=== PATIENT | female | born 1995 | race Caucasian/White ===

== ENCOUNTER 2022-12-15 07:44 | Inpatient (IN) | payer BC ==
[2022-12-15 08:20] LABS: #Basophils 0.1 thou/uL (0.0-0.2); #Eosinphils 0.1 thou/uL (0.0-0.7); #Monocytes 0.8 thou/uL (0.11-0.59); #Neutrophils 11.9 thou/uL (1.40-6.50); %Basophils 0.4 % (0.0-1.0); %Eosinophils 0.3 % (0.0-10.0); %Lymphocytes 18.2 % (21.0-51.0); %Monocytes 4.8 % (0.0-10.0); %Neutrophils 75.8 % (42.0-75.0); Hemoglobin 13.2 g/dL (12.0-16.0); Mean Corpuscular HGB CONC 34.2 g/dL (32.0-36.0); Mean Corpuscular Hemoglobin 32.4 pg (27.0-31.0); Mean Corpuscular Volume 94.8 fl (78.0-98.0); Mean Platelet Volume 9.9 fL (7.4-10.4); Platelet Count 314 10x3/uL (130-400); RBC Distribution Width 11.4 % (11.5-14.5); Red Blood Cell (RBC) Count 4.07 mill/uL (4.20-5.40); White Blood Cell (WBC) Count 15.7 10x3/uL (4.8-10.8)
[2022-12-15] MEDS ORDERED: Morphine 4 MG/ML VIAL ONE (08:22)
[2022-12-15] MEDS ORDERED: Bupivacaine 0.25% 10 ML VIAL ONE (08:22)
[2022-12-15] MEDS ORDERED: TETANUS, DIPHTHERIA TOX,ADULT (TDVAX) 0.5 ML VIAL IM ONE (08:22)
[2022-12-15] MEDS ORDERED: Ondansetron PF 4 MG/2 ML Vial ONE ×3 (08:22→12:07)
[2022-12-15] MEDS ORDERED: Boostrix 0.5 ML (Tdap) VIAL (>/=7 yrs of age) ONE (08:23)
[2022-12-15 08:31] LABS: BHCG - Serum Negative (NEGATIVE); Pregs Control Background? CLEAR/WHITE (CLR/WHITE); Pregs Control Bar Appear? YES (CONTROL BAR)
[2022-12-15 08:43] LABS: Acetaminophen Less than 10 mcg/mL (10.0-30.0); Alcohol Less than 10.0 mg/dL (Less than 10); Lipase 51 U/L (8-78); Salicylate Less than 8.0 mg/dL (15.0-30.0)
[2022-12-15 08:47] LABS: ALT (SGPT) 24 U/L (8-55); AST (SGOT) 26 U/L (5-34); Albumin 3.8 g/dL (3.5-5.0); Alkaline Phosphatase 44 U/L (40-110); Anion Gap 15 mmol/L (10-20); BUN (Urea Nitrogen) 13 mg/dL (7.0-18.7); Bilirubin, Total 0.4 mg/dL (0.2-1.2); Calc. Creatinine Clearance 0 mL/min (70-130); Calcium 8.5 mg/dL (7.8-10.44); Carbon Dioxide 15 mmol/L (22-29); Chloride 110 mmol/L (98-107); Estimated GFR 108; Globulin 2.6 g/dL (2.4-3.5); Glucose 166 mg/dL (70-105); Potassium 4.2 mmol/L (3.5-5.1); Protein, Total 6.4 g/dL (6.0-8.3); Sodium 136 mmol/L (136-145)
[2022-12-15] MEDS ORDERED: Piperacillin/Tazobactam 3.375 GM VIAL ONE ×2 (09:28→16:12)
[2022-12-15] MEDS ORDERED: Morphine 2 MG/ML VIAL ONE (09:59)
[2022-12-15] MEDS ORDERED: Iopamidol-370 76% 500 ML MDV (1 ML CHARGE) ONE (10:27)
[2022-12-15] MEDS ORDERED: HYDROmorphone 0.5 MG/0.5 ML SYRINGE ONE ×2 (12:01→14:27)
[2022-12-15] MEDS ORDERED: fentaNYL PF 100 MCG/2 ML SYRINGE ONE (12:02)
[2022-12-15] MEDS ORDERED: Midazolam HCl 2 mg/2 ml Vial ONE (12:02)
[2022-12-15] MEDS ORDERED: Succinylcholine 200 MG/10 ml SYRINGE FS ONE (12:07)
[2022-12-15] MEDS ORDERED: Lidocaine 1% PF 5 ML VIAL ONE (12:07)
[2022-12-15] MEDS ORDERED: PHENYLEPHRINE-NS 100 MCG/ML 10 ML SYRINGE ONE (12:07)
[2022-12-15] MEDS ORDERED: Ketorolac Tromethamine 30 MG/ML VIAL ONE (12:07)
[2022-12-15] MEDS ORDERED: Rocuronium Bromide 10 MG/ML (10ML VIAL) ONE (12:07)
[2022-12-15] MEDS ORDERED: PROPOFOL 200 MG/20 ML VIAL ONE (12:07)
[2022-12-15] MEDS ORDERED: Dexamethasone 20 MG/5 ML VIAL ONE (12:07)
[2022-12-15] MEDS ORDERED: Albumin 5% 250 ML ONE (12:35)
[2022-12-15] MEDS ORDERED: Bacitracin Zinc Ointment 30 gm TUBE ONE (14:00)
[2022-12-15] MEDS ORDERED: HYDROmorphone 2 MG/ML VIAL SLOW IVP PRN (15:20)
[2022-12-15] MEDS ORDERED: Meperidine HCl/PF 25 MG/ML VIAL SLOW IVP PRN (15:20)
[2022-12-15] MEDS ORDERED: Promethazine HCl 25 MG/ML VIAL IM PRN ×2 (15:20→15:30)
[2022-12-15] MEDS ORDERED: Ondansetron PF 4 MG/2 ML Vial IVP PRN (15:30)
[2022-12-15] MEDS ORDERED: diphenhydrAMINE 25 MG CAP PO PRN (15:30)
[2022-12-15] MEDS ORDERED: diphenhydrAMINE 50 MG/ML VIAL IM/IV PRN (15:30)
[2022-12-15] MEDS ORDERED: Zolpidem Tartrate 5 MG TAB PO PRN (15:30)
[2022-12-15] MEDS ORDERED: Fentanyl CADD 100 ML IVPB SCH (15:30)
[2022-12-15] MEDS ORDERED: Naloxone HCl 0.4 mg/ml Vial IV PRN (15:30)
[2022-12-15] MEDS ORDERED: Sodium Chloride 0.9% 100 ML ONE (16:12)
[2022-12-15] MEDS: Piperacillin/Tazobactam 3.375 GM in Sodium Chloride 0.9% 100 ML IVPB SCH (16:16)
[2022-12-15] MEDS: Bacitracin 1 PK TOP SCH ×2 (17:46→21:06)
[2022-12-15] MEDS: Sodium Chloride 0.9% 1,000 ML IV SCH (17:47)
[2022-12-15] MEDS: Famotidine/PF 20 mg/2ml Vial SLOW IVP SCH (21:06)
[2022-12-16] MEDS: Piperacillin/Tazobactam 3.375 GM in Sodium Chloride 0.9% 100 ML IVPB SCH ×3 (00:56→16:48)
[2022-12-16] MEDS: Sodium Chloride 0.9% 1,000 ML IV SCH ×2 (00:56→08:35)
[2022-12-16 06:02] LABS: %Basophils 0.1 % (0.0-1.0); %Lymphocytes 8.1 % (21.0-51.0); %Monocytes 10.2 % (0.0-10.0); %Neutrophils 81.4 % (42.0-75.0); Mean Corpuscular HGB CONC 33.9 g/dL (32.0-36.0); Mean Corpuscular Hemoglobin 32.8 pg (27.0-31.0); Mean Corpuscular Volume 96.6 fl (78.0-98.0); Platelet Count 238 10x3/uL (130-400); RBC Distribution Width 11.9 % (11.5-14.5); White Blood Cell (WBC) Count 9.8 10x3/uL (4.8-10.8)
[2022-12-16 06:14] LABS: Anion Gap 14 mmol/L (10-20); BUN (Urea Nitrogen) 11 mg/dL (7.0-18.7); Calc. Creatinine Clearance 122 mL/min (70-130); Calcium 8.1 mg/dL (7.8-10.44); Carbon Dioxide 19 mmol/L (22-29); Chloride 112 mmol/L (98-107); Estimated GFR 103; Glucose 163 mg/dL (70-105); Magnesium 1.6 mg/dL (1.6-2.6); Phosphorus 3.1 mg/dL (2.3-4.7); Potassium 3.8 mmol/L (3.5-5.1); Sodium 141 mmol/L (136-145)
[2022-12-16 06:36] LABS: Hemoglobin 9.5 g/dL (12.0-16.0)
[2022-12-16] MEDS: Bacitracin 1 PK TOP SCH ×3 (08:34→20:20)
[2022-12-16] MEDS: Famotidine/PF 20 mg/2ml Vial SLOW IVP SCH ×2 (08:34→20:20)
[2022-12-16] MEDS ORDERED: Lactated Ringer's 1,000 ML IV SCH (10:45)
[2022-12-16] MEDS: Lactated Ringer's 1,000 ML IV SCH ×2 (16:23→20:21)
[2022-12-16 18:07] LABS: #Neutrophils 10.2 thou/uL (1.40-6.50); %Basophils 0.2 % (0.0-1.0); %Lymphocytes 8.5 % (21.0-51.0); %Monocytes 8.3 % (0.0-10.0); %Neutrophils 82.6 % (42.0-75.0); Hemoglobin 8.8 g/dL (12.0-16.0); Mean Corpuscular HGB CONC 34.4 g/dL (32.0-36.0); Mean Corpuscular Hemoglobin 32.8 pg (27.0-31.0); Mean Corpuscular Volume 95.5 fl (78.0-98.0); Mean Platelet Volume 9.9 fL (7.4-10.4); Platelet Count 194 10x3/uL (130-400); Red Blood Cell (RBC) Count 2.68 mill/uL (4.20-5.40); White Blood Cell (WBC) Count 12.4 10x3/uL (4.8-10.8)
[2022-12-16] MEDS ORDERED: Magnesium Sulfate In Water 4 GM in Premix Bag 1 BAG IVPB SCH (19:15)
[2022-12-16] MEDS: Ascorbic Acid 500 mg Chewable Tablet PO SCH (20:20)
[2022-12-17] MEDS: Lactated Ringer's 1,000 ML IV SCH ×5 (03:48→23:21)
[2022-12-17] MEDS: Ondansetron PF 4 MG/2 ML Vial IVP PRN ×2 (06:31→18:18)
[2022-12-17 08:20] LABS: #Monocytes 0.7 thou/uL (0.11-0.59); #Neutrophils 9.6 thou/uL (1.40-6.50); %Basophils 0.2 % (0.0-1.0); %Lymphocytes 7.5 % (21.0-51.0); %Monocytes 5.9 % (0.0-10.0); %Neutrophils 85.8 % (42.0-75.0); Hemoglobin 6.5 g/dL (12.0-16.0); Mean Corpuscular HGB CONC 33.9 g/dL (32.0-36.0); Mean Corpuscular Hemoglobin 32.8 pg (27.0-31.0); Mean Platelet Volume 9.8 fL (7.4-10.4); Platelet Count 199 10x3/uL (130-400); Red Blood Cell (RBC) Count 1.98 mill/uL (4.20-5.40); White Blood Cell (WBC) Count 11.2 10x3/uL (4.8-10.8)
[2022-12-17 08:44] LABS: Anion Gap 9 mmol/L (10-20); BUN (Urea Nitrogen) 8 mg/dL (7.0-18.7); Calc. Creatinine Clearance 164 mL/min (70-130); Carbon Dioxide 24 mmol/L (22-29); Chloride 109 mmol/L (98-107); Estimated GFR 128; Glucose 133 mg/dL (70-105); Potassium 3.7 mmol/L (3.5-5.1); Sodium 138 mmol/L (136-145)
[2022-12-17] MEDS: Piperacillin/Tazobactam 3.375 GM in Sodium Chloride 0.9% 100 ML IVPB SCH ×4 (09:54→23:17)
[2022-12-17] MEDS: Ferrous Sulfate 325 MG TAB PO SCH ×2 (09:54→16:14)
[2022-12-17] MEDS: Bacitracin 1 PK TOP SCH ×3 (09:54→20:24)
[2022-12-17] MEDS: Ascorbic Acid 500 mg Chewable Tablet PO SCH ×2 (09:54→20:24)
[2022-12-17] MEDS: Famotidine/PF 20 mg/2ml Vial SLOW IVP SCH ×2 (09:55→20:24)
[2022-12-17 17:34] LABS: #Monocytes 0.7 thou/uL (0.11-0.59); #Neutrophils 11.3 thou/uL (1.40-6.50); %Basophils 0.2 % (0.0-1.0); %Eosinophils 0.1 % (0.0-10.0); %Lymphocytes 7.7 % (21.0-51.0); %Monocytes 5.2 % (0.0-10.0); %Neutrophils 86.3 % (42.0-75.0); Hemoglobin 8.4 g/dL (12.0-16.0); Mean Corpuscular HGB CONC 33.7 g/dL (32.0-36.0); Mean Corpuscular Hemoglobin 32.1 pg (27.0-31.0); Mean Platelet Volume 10.1 fL (7.4-10.4); Platelet Count 247 10x3/uL (130-400); RBC Distribution Width 12.3 % (11.5-14.5); Red Blood Cell (RBC) Count 2.62 mill/uL (4.20-5.40)
[2022-12-18 04:48] LABS: #Monocytes 0.7 thou/uL (0.11-0.59); #Neutrophils 7.2 thou/uL (1.40-6.50); %Basophils 0.1 % (0.0-1.0); %Eosinophils 0.1 % (0.0-10.0); %Monocytes 7.9 % (0.0-10.0); %Neutrophils 78.4 % (42.0-75.0); Hemoglobin 7.3 g/dL (12.0-16.0); Mean Corpuscular HGB CONC 34.4 g/dL (32.0-36.0); Mean Corpuscular Hemoglobin 32.2 pg (27.0-31.0); Mean Corpuscular Volume 93.4 fl (78.0-98.0); Mean Platelet Volume 9.8 fL (7.4-10.4); Platelet Count 209 10x3/uL (130-400); RBC Distribution Width 12.4 % (11.5-14.5); Red Blood Cell (RBC) Count 2.27 mill/uL (4.20-5.40); White Blood Cell (WBC) Count 9.2 10x3/uL (4.8-10.8)
[2022-12-18 05:06] LABS: Anion Gap 10 mmol/L (10-20); BUN (Urea Nitrogen) 12 mg/dL (7.0-18.7); Calc. Creatinine Clearance 154 mL/min (70-130); Calcium 7.7 mg/dL (7.8-10.44); Carbon Dioxide 24 mmol/L (22-29); Chloride 111 mmol/L (98-107); Estimated GFR 126; Glucose 118 mg/dL (70-105); Magnesium 1.9 mg/dL (1.6-2.6); Phosphorus 1.7 mg/dL (2.3-4.7); Potassium 3.6 mmol/L (3.5-5.1); Sodium 141 mmol/L (136-145)
[2022-12-18] MEDS ORDERED: Potassium Phosphate 30 MMOL in Sodium Chloride 0.9% 250 ML 250 ML IVPB SCH (09:00)
[2022-12-18] MEDS: Lactated Ringer's 1,000 ML IV SCH ×3 (09:08→23:13)
[2022-12-18] MEDS: Piperacillin/Tazobactam 3.375 GM in Sodium Chloride 0.9% 100 ML IVPB SCH ×3 (09:08→23:11)
[2022-12-18] MEDS: Ferrous Sulfate 325 MG TAB PO SCH ×3 (09:08→20:35)
[2022-12-18] MEDS: Bacitracin 1 PK TOP SCH ×3 (09:08→20:35)
[2022-12-18] MEDS: Ondansetron PF 4 MG/2 ML Vial IVP PRN (09:08)
[2022-12-18] MEDS: Ascorbic Acid 500 mg Chewable Tablet PO SCH ×2 (09:08→20:35)
[2022-12-18] MEDS: Famotidine/PF 20 mg/2ml Vial SLOW IVP SCH ×2 (09:09→20:35)
[2022-12-18] MEDS ORDERED: traMADol HCl 50 MG TAB PO PRN (11:54)
[2022-12-18] MEDS ORDERED: Morphine 2 MG/ML VIAL SLOW IVP PRN (11:56)
[2022-12-18] MEDS ORDERED: Acetaminophen 325 MG TAB PO SCH (12:00)
[2022-12-18] MEDS: traMADol HCl 50 MG TAB PO SCH ×3 (13:23→23:11)
[2022-12-18] MEDS: Acetaminophen 500 MG TAB PO SCH ×3 (13:24→23:10)
[2022-12-19] MEDS: Acetaminophen 500 MG TAB PO SCH ×4 (05:04→23:49)
[2022-12-19] MEDS: traMADol HCl 50 MG TAB PO SCH ×4 (05:05→23:50)
[2022-12-19 07:03] LABS: #Eosinphils 0.1 thou/uL (0.0-0.7); #Monocytes 0.7 thou/uL (0.11-0.59); #Neutrophils 2.6 thou/uL (1.40-6.50); %Basophils 0.4 % (0.0-1.0); %Eosinophils 2.4 % (0.0-10.0); %Lymphocytes 33.3 % (21.0-51.0); %Monocytes 13.5 % (0.0-10.0); %Neutrophils 49.3 % (42.0-75.0); Hemoglobin 6.4 g/dL (12.0-16.0); Mean Corpuscular HGB CONC 32.7 g/dL (32.0-36.0); Mean Platelet Volume 9.6 fL (7.4-10.4); Platelet Count 239 10x3/uL (130-400); RBC Distribution Width 12.7 % (11.5-14.5); White Blood Cell (WBC) Count 5.4 10x3/uL (4.8-10.8)
[2022-12-19] MEDS: Lactated Ringer's 1,000 ML IV SCH ×2 (09:20→15:44)
[2022-12-19] MEDS: Ascorbic Acid 500 mg Chewable Tablet PO SCH ×2 (09:21→21:20)
[2022-12-19] MEDS: Ferrous Sulfate 325 MG TAB PO SCH ×2 (09:21→21:22)
[2022-12-19] MEDS: Bacitracin 1 PK TOP SCH ×3 (09:21→21:20)
[2022-12-19] MEDS: Famotidine/PF 20 mg/2ml Vial SLOW IVP SCH (10:39)
[2022-12-19 10:58] VITALS: BMI 25.8
[2022-12-19] MEDS: Ondansetron PF 4 MG/2 ML Vial IVP PRN (19:55)
[2022-12-19] MEDS: Famotidine 20 MG TAB PO SCH (21:22)
[2022-12-19 22:34] LABS: Hemoglobin 8.4 g/dL (12.0-16.0)
[2022-12-20] MEDS: Acetaminophen 500 MG TAB PO SCH ×4 (05:15→23:09)
[2022-12-20] MEDS: traMADol HCl 50 MG TAB PO SCH ×4 (05:18→23:09)
[2022-12-20 08:48] LABS: #Eosinphils 0.1 thou/uL (0.0-0.7); #Monocytes 1.1 thou/uL (0.11-0.59); #Neutrophils 7.1 thou/uL (1.40-6.50); %Basophils 0.4 % (0.0-1.0); %Eosinophils 0.6 % (0.0-10.0); %Lymphocytes 12.6 % (21.0-51.0); %Monocytes 11.4 % (0.0-10.0); Hemoglobin 8.8 g/dL (12.0-16.0); Mean Corpuscular HGB CONC 34.4 g/dL (32.0-36.0); Mean Corpuscular Hemoglobin 31.9 pg (27.0-31.0); Mean Corpuscular Volume 92.8 fl (78.0-98.0); Mean Platelet Volume 9.3 fL (7.4-10.4); Platelet Count 301 10x3/uL (130-400); RBC Distribution Width 13.7 % (11.5-14.5); Red Blood Cell (RBC) Count 2.76 mill/uL (4.20-5.40); White Blood Cell (WBC) Count 9.9 10x3/uL (4.8-10.8)
[2022-12-20 09:14] LABS: Anion Gap 14 mmol/L (10-20); BUN (Urea Nitrogen) 15 mg/dL (7.0-18.7); Calc. Creatinine Clearance 176 mL/min (70-130); Calcium 8.4 mg/dL (7.8-10.44); Carbon Dioxide 23 mmol/L (22-29); Chloride 104 mmol/L (98-107); Estimated GFR 130; Glucose 97 mg/dL (70-105); Potassium 3.5 mmol/L (3.5-5.1); Sodium 137 mmol/L (136-145)
[2022-12-20] MEDS: Ascorbic Acid 500 mg Chewable Tablet PO SCH ×2 (09:17→20:18)
[2022-12-20] MEDS: Ferrous Sulfate 325 MG TAB PO SCH ×2 (09:17→20:18)
[2022-12-20] MEDS: Famotidine 20 MG TAB PO SCH ×2 (09:17→20:19)
[2022-12-20] MEDS: Bacitracin 1 PK TOP SCH ×3 (09:17→20:18)
[2022-12-20] MEDS: Ondansetron PF 4 MG/2 ML Vial IVP PRN (10:37)
[2022-12-21] MEDS: Acetaminophen 500 MG TAB PO SCH ×3 (00:42→11:32)
[2022-12-21] MEDS: traMADol HCl 50 MG TAB PO SCH ×3 (00:43→11:33)
[2022-12-21] MEDS: Ferrous Sulfate 325 MG TAB PO SCH (08:04)
[2022-12-21] MEDS: Famotidine 20 MG TAB PO SCH (08:04)
[2022-12-21] MEDS: Ascorbic Acid 500 mg Chewable Tablet PO SCH (08:04)
[2022-12-21] MEDS: Bacitracin 1 PK TOP SCH (08:04)
[2022-12-21 12:10] VITALS: BP 105/67; TEMP 99.1
== END 2022-12-21 13:35 | disposition home or self-care (01) | DRG 907 ==
LOC: ERS 07:44 → SDC 09:42 → SURG A 17:26
PROVIDERS: ADMIT Surgery; ATTEND Surgery
PROC: 0DT80ZZ Resection of Small Intestine, Open Approach (ICD-10-PCS; principal; 2022-12-15)
PROC: 0DTN0ZZ Resection of Sigmoid Colon, Open Approach (ICD-10-PCS; 2022-12-15)
PROC: 0DTH0ZZ Resection of Cecum, Open Approach (ICD-10-PCS; 2022-12-15)
PROC: 0HQ1XZZ Repair Face Skin, External Approach (ICD-10-PCS; 2022-12-15)
PROC: 0HQEXZZ Repair Left Lower Arm Skin, External Approach (ICD-10-PCS; 2022-12-15)
PROC: 0HQLXZZ Repair Left Lower Leg Skin, External Approach (ICD-10-PCS; 2022-12-15)
PROC: 30233N1 Transfusion of Nonautologous Red Blood Cells into Peripheral Vein, Percutaneous Approach (ICD-10-PCS; 2022-12-17)
DX: S36.898A Other injury of other intra-abdominal organs, initial encounter (principal); S35.239A Unspecified injury of inferior mesenteric artery, initial encounter; D62 Acute posthemorrhagic anemia; S32.029A Unspecified fracture of second lumbar vertebra, initial encounter for closed fracture; S01.81XA Laceration without foreign body of other part of head, initial encounter; S81.012A Laceration without foreign body, left knee, initial encounter; S51.012A Laceration without foreign body of left elbow, initial encounter; E87.5 Hyperkalemia; E83.42 Hypomagnesemia; Z88.5 Allergy status to narcotic agent; V89.0XXA Person injured in unspecified motor-vehicle accident, nontraffic, initial encounter; Y92.89 Other specified places as the place of occurrence of the external cause
CPT/HCPCS: 36415; 36416; 36430; 70450; 70486; 71260; 72125; 74177; 80048; 80053; 80307; 83690; 83735; 84100; 84484; 84703; 85025; 86850; 86900; 86901; 88307; 90471; 90714; 90715; 93005; 96374; 96375; C1713; G0390; J1100; J1170; J1650; J1885; J2250; J2270; J2272; J2405; J2543; J2550; J2704; J3010; J3475; J3490; J7050; J7120; P9016; P9045; Q9967; S0020; S0028

== ENCOUNTER 2022-12-23 14:12 | Emergency (ER) | payer BC ==
[2022-12-23 15:04] LABS: #Eosinphils 0.1 thou/uL (0.0-0.7); #Monocytes 1.4 thou/uL (0.11-0.59); #Neutrophils 9.6 thou/uL (1.40-6.50); %Basophils 0.1 % (0.0-1.0); %Eosinophils 0.8 % (0.0-10.0); %Monocytes 10.1 % (0.0-10.0); %Neutrophils 71.2 % (42.0-75.0); Hemoglobin 9.4 g/dL (12.0-16.0); Mean Corpuscular HGB CONC 34.4 g/dL (32.0-36.0); Mean Corpuscular Hemoglobin 31.8 pg (27.0-31.0); Mean Corpuscular Volume 92.2 fl (78.0-98.0); Mean Platelet Volume 9.4 fL (7.4-10.4); Platelet Count 458 10x3/uL (130-400); RBC Distribution Width 13.6 % (11.5-14.5); Red Blood Cell (RBC) Count 2.96 mill/uL (4.20-5.40); White Blood Cell (WBC) Count 13.4 10x3/uL (4.8-10.8)
[2022-12-23 15:32] LABS: ALT (SGPT) 32 U/L (8-55); AST (SGOT) 18 U/L (5-34); Alkaline Phosphatase 65 U/L (40-110); Anion Gap 8 mmol/L (10-20); BUN (Urea Nitrogen) 7 mg/dL (7.0-18.7); Bilirubin, Total 0.2 mg/dL (0.2-1.2); Calc. Creatinine Clearance 0 mL/min (70-130); Calcium 8.3 mg/dL (7.8-10.44); Carbon Dioxide 26 mmol/L (22-29); Chloride 102 mmol/L (98-107); Estimated GFR 130; Globulin 2.9 g/dL (2.4-3.5); Glucose 108 mg/dL (70-105); Potassium 2.9 mmol/L (3.5-5.1); Protein, Total 5.9 g/dL (6.0-8.3); Sodium 133 mmol/L (136-145)
[2022-12-23] MEDS ORDERED: Potassium Chloride 20 MEQ TAB ONE (16:31)
== END 2022-12-23 16:45 | disposition home or self-care (01) ==
LOC: ERS 14:12
DX: T81.31XA Disruption of external operation (surgical) wound, not elsewhere classified, initial encounter (principal); E87.6 Hypokalemia
CPT/HCPCS: 36415; 80053; 83605; 85025; 99284

== ENCOUNTER 2023-01-04 00:35 | Inpatient (IN) | payer OTHER, BC ==
[2023-01-04 02:06] VITALS: BMI 25.5
[2023-01-04] MEDS ORDERED: Morphine 2 MG/ML VIAL SLOW IVP PRN (02:07)
[2023-01-04] MEDS ORDERED: Dextrose 50% Abboject 50 ML SYRINGE SLOW IVP PRN (02:07)
[2023-01-04] MEDS ORDERED: Ondansetron ODT 4 MG TAB PO PRN (02:07)
[2023-01-04] MEDS ORDERED: Ondansetron PF 4 MG/2 ML Vial IVP PRN (02:07)
[2023-01-04] MEDS ORDERED: Glucagon 1 MG/ML KIT IM PRN (02:07)
[2023-01-04] MEDS ORDERED: hydrALAZINE 20 MG/ML VIAL SLOW IVP PRN (02:07)
[2023-01-04] MEDS ORDERED: Ipratropium/Albuterol 3 ML NEB NEB PRN (02:07)
[2023-01-04] MEDS ORDERED: Dextrose 5% in Water 1,000 ML IV PRN (02:07)
[2023-01-04] MEDS ORDERED: Morphine 4 MG/ML VIAL SLOW IVP PRN (02:07)
[2023-01-04] MEDS ORDERED: Sodium Chloride 0.9% 1,000 ML IV SCH (02:15)
[2023-01-04] MEDS: Piperacillin/Tazobactam 3.375 GM in Sodium Chloride 0.9% 100 ML IVPB SCH ×4 (04:05→20:12)
[2023-01-04] MEDS: Ketorolac Tromethamine 30 MG/ML VIAL IVP SCH ×4 (04:06→20:12)
[2023-01-04 06:09] LABS: Hematocrit 24.2 % (36.0-47.0); Hemoglobin 7.6 g/dL (12.0-16.0); Mean Corpuscular HGB CONC 31.4 g/dL (32.0-36.0); Mean Corpuscular Hemoglobin 29.7 pg (27.0-31.0); Mean Corpuscular Volume 94.5 fl (78.0-98.0); Mean Platelet Volume 9.4 fL (7.4-10.4); Platelet Count 473 10x3/uL (130-400); RBC Distribution Width 13.2 % (11.5-14.5); Red Blood Cell (RBC) Count 2.56 mill/uL (4.20-5.40); White Blood Cell (WBC) Count 10.7 10x3/uL (4.8-10.8)
[2023-01-04 06:14] LABS: Delete Auto Diff?? YES; Manual Diff?? YES
[2023-01-04 06:29] LABS: Anion Gap 14 mmol/L (10-20); BUN (Urea Nitrogen) 7 mg/dL (7.0-18.7); Calc. Creatinine Clearance 157 mL/min (70-130); Calcium 8.2 mg/dL (7.8-10.44); Carbon Dioxide 23 mmol/L (22-29); Chloride 104 mmol/L (98-107); Estimated GFR 127; Glucose 117 mg/dL (70-105); Magnesium 1.6 mg/dL (1.6-2.6); Potassium 2.9 mmol/L (3.5-5.1); Sodium 138 mmol/L (136-145)
[2023-01-04 06:44] LABS: Band 24 % (5-11); Eosinophils 2 % (0-10); Hypochromia SLIGHT = 6-15 cells HPF (0-5); Large Platelets 2.9 % (0-5); Lymphocytes 14 % (21-51); Monocytes 19 % (0-10); Neutrophil 41 % (42-75); Platelet Adequacy Comment Platelets Increased; Polychromasia SLIGHT = 2-3 cells HPF (0-2); Total Cell Count 103
[2023-01-04] MEDS ORDERED: Potassium Chloride 40 MEQ, Magnesium Sulfate 4 GM in Sodium Chloride 0.9% 250 ML 250 ML IVPB SCH (08:30)
[2023-01-04] MEDS: Famotidine/PF 20 mg/2ml Vial SLOW IVP SCH ×2 (08:36→20:12)
[2023-01-04 09:07] LABS: Hemoglobin 7.9 g/dL (12.0-16.0); Mean Corpuscular HGB CONC 31.6 g/dL (32.0-36.0); Mean Corpuscular Hemoglobin 30.3 pg (27.0-31.0); Mean Corpuscular Volume 95.8 fl (78.0-98.0); Mean Platelet Volume 9.2 fL (7.4-10.4); Platelet Count 458 10x3/uL (130-400); RBC Distribution Width 13.3 % (11.5-14.5); Red Blood Cell (RBC) Count 2.61 mill/uL (4.20-5.40); White Blood Cell (WBC) Count 9.5 10x3/uL (4.8-10.8)
[2023-01-04 09:10] LABS: Delete Auto Diff?? YES; Manual Diff?? YES
[2023-01-04 09:29] LABS: ALT (SGPT) 40 U/L (8-55); AST (SGOT) 18 U/L (5-34); Albumin 2.8 g/dL (3.5-5.0); Alkaline Phosphatase 82 U/L (40-110); Anion Gap 12 mmol/L (10-20); BUN (Urea Nitrogen) 8 mg/dL (7.0-18.7); Bilirubin, Total 0.3 mg/dL (0.2-1.2); Calc. Creatinine Clearance 152 mL/min (70-130); Calcium 8.4 mg/dL (7.8-10.44); Carbon Dioxide 24 mmol/L (22-29); Chloride 104 mmol/L (98-107); Estimated GFR 126; Globulin 3.4 g/dL (2.4-3.5); Glucose 111 mg/dL (70-105); Potassium 3.4 mmol/L (3.5-5.1); Protein, Total 6.2 g/dL (6.0-8.3); Sodium 137 mmol/L (136-145)
[2023-01-04 10:42] LABS: Anisocytosis SLIGHT = 6-15 cells HPF (0-5); Band 31 % (5-11); CellaVision Operator ID lab.dlt; Eosinophils 1 % (0-10); Hypochromia SLIGHT = 6-15 cells HPF (0-5); Large Platelets 4.9 % (0-5); Lymphocytes 18 % (21-51); Macrocytosis SLIGHT = 6-15 cells HPF (0-5); Metamyelocyte 1 % (0-0); Monocytes 13 % (0-10); Neutrophil 36 % (42-75); Platelet Adequacy Comment Platelets Increased; Poikilocytosis SLIGHT = 6-15 cells HPF (0-5); Polychromasia SLIGHT = 2-3 cells HPF (0-2); Total Cell Count 103
[2023-01-04 15:43] LABS: Potassium 3.5 mmol/L (3.5-5.1)
[2023-01-05] MEDS: Piperacillin/Tazobactam 3.375 GM in Sodium Chloride 0.9% 100 ML IVPB SCH ×4 (02:27→20:09)
[2023-01-05] MEDS: Ketorolac Tromethamine 30 MG/ML VIAL IVP SCH ×4 (02:30→20:12)
[2023-01-05 05:46] LABS: Hematocrit 24.3 % (36.0-47.0); Hemoglobin 7.6 g/dL (12.0-16.0); Mean Corpuscular HGB CONC 31.3 g/dL (32.0-36.0); Mean Platelet Volume 9.4 fL (7.4-10.4); Platelet Count 447 10x3/uL (130-400); RBC Distribution Width 13.4 % (11.5-14.5); Red Blood Cell (RBC) Count 2.53 mill/uL (4.20-5.40); White Blood Cell (WBC) Count 6.6 10x3/uL (4.8-10.8)
[2023-01-05 05:57] LABS: Delete Auto Diff?? YES; Manual Diff?? YES
[2023-01-05 05:58] LABS: INR-International Normal Ratio 1.2; PTT 30.4 sec (22.9-36.1); Prothrombin Time 15.7 sec (12.0-14.7)
[2023-01-05 06:09] LABS: ALT (SGPT) 33 U/L (8-55); AST (SGOT) 18 U/L (5-34); Albumin 2.8 g/dL (3.5-5.0); Alkaline Phosphatase 77 U/L (40-110); Anion Gap 13 mmol/L (10-20); BUN (Urea Nitrogen) 9 mg/dL (7.0-18.7); Bilirubin, Total 0.2 mg/dL (0.2-1.2); Calc. Creatinine Clearance 141 mL/min (70-130); Calcium 8.2 mg/dL (7.8-10.44); Carbon Dioxide 22 mmol/L (22-29); Chloride 107 mmol/L (98-107); Estimated GFR 123; Globulin 3.1 g/dL (2.4-3.5); Glucose 102 mg/dL (70-105); Phosphorus 3.8 mg/dL (2.3-4.7); Potassium 3.7 mmol/L (3.5-5.1); Protein, Total 5.9 g/dL (6.0-8.3); Sodium 138 mmol/L (136-145)
[2023-01-05 06:19] LABS: Band 9 % (5-11); CellaVision Operator ID lab.abc; Eosinophils 2 % (0-10); Hypochromia SLIGHT = 6-15 cells HPF (0-5); Lymphocytes 29 % (21-51); Monocytes 10 % (0-10); Myelocyte 1 % (0-0); Neutrophil 50 % (42-75); Platelet Adequacy Comment Platelets Normal; Polychromasia SLIGHT = 2-3 cells HPF (0-2); Smudge Cells 8.9 %; Total Cell Count 101; Toxic Granulation SLIGHT
[2023-01-05] MEDS: Famotidine/PF 20 mg/2ml Vial SLOW IVP SCH ×2 (08:36→20:11)
[2023-01-05] MEDS ORDERED: fentaNYL 50 mcg/mL 1 mL Vial ONE (10:16)
[2023-01-05] MEDS ORDERED: Sodium Bicarbonate 2.5 MEQ/5 ML VIAL ONE (10:16)
[2023-01-05] MEDS ORDERED: Lidocaine 1% PF 5 ML VIAL ONE (10:16)
[2023-01-05] MEDS ORDERED: Midazolam HCl 2 mg/2 ml Vial ONE (10:16)
[2023-01-06] MEDS: Ketorolac Tromethamine 30 MG/ML VIAL IVP SCH ×4 (02:15→20:02)
[2023-01-06] MEDS: Piperacillin/Tazobactam 3.375 GM in Sodium Chloride 0.9% 100 ML IVPB SCH ×4 (02:15→20:02)
[2023-01-06 06:20] LABS: #Basophils 0.1 thou/uL (0.0-0.2); #Eosinphils 0.1 thou/uL (0.0-0.7); #Monocytes 0.7 thou/uL (0.11-0.59); %Eosinophils 1.9 % (0.0-10.0); %Lymphocytes 25.8 % (21.0-51.0); %Neutrophils 59.1 % (42.0-75.0); Hematocrit 27.3 % (36.0-47.0); Mean Corpuscular HGB CONC 29.3 g/dL (32.0-36.0); Mean Corpuscular Hemoglobin 29.4 pg (27.0-31.0); Mean Corpuscular Volume 100.4 fl (78.0-98.0); Mean Platelet Volume 9.4 fL (7.4-10.4); Platelet Count 443 10x3/uL (130-400); RBC Distribution Width 13.4 % (11.5-14.5); Red Blood Cell (RBC) Count 2.72 mill/uL (4.20-5.40); White Blood Cell (WBC) Count 6.7 10x3/uL (4.8-10.8)
[2023-01-06 06:42] LABS: ALT (SGPT) 32 U/L (8-55); AST (SGOT) 23 U/L (5-34); Albumin 2.8 g/dL (3.5-5.0); Alkaline Phosphatase 76 U/L (40-110); Anion Gap 11 mmol/L (10-20); BUN (Urea Nitrogen) 10 mg/dL (7.0-18.7); Bilirubin, Total 0.2 mg/dL (0.2-1.2); Calc. Creatinine Clearance 139 mL/min (70-130); Calcium 8.5 mg/dL (7.8-10.44); Carbon Dioxide 21 mmol/L (22-29); Chloride 110 mmol/L (98-107); Estimated GFR 123; Globulin 3.5 g/dL (2.4-3.5); Glucose 107 mg/dL (70-105); Potassium 3.4 mmol/L (3.5-5.1); Protein, Total 6.3 g/dL (6.0-8.3); Sodium 139 mmol/L (136-145)
[2023-01-06] MEDS: Ferrous Sulfate 325 MG TAB PO SCH (08:23)
[2023-01-06] MEDS: Famotidine/PF 20 mg/2ml Vial SLOW IVP SCH ×2 (08:24→20:02)
[2023-01-06] MEDS: Ascorbic Acid 500 mg Chewable Tablet PO SCH (08:24)
[2023-01-06] MEDS: Potassium Chloride 20 MEQ in Premix Bag 1 BAG IVPB SCH ×2 (12:19→16:43)
[2023-01-07] MEDS: Piperacillin/Tazobactam 3.375 GM in Sodium Chloride 0.9% 100 ML IVPB SCH ×4 (02:26→21:01)
[2023-01-07] MEDS: Ketorolac Tromethamine 30 MG/ML VIAL IVP SCH ×3 (02:26→16:49)
[2023-01-07] MEDS ORDERED: Acetaminophen 500 MG TAB PO PRN (07:05)
[2023-01-07] MEDS: Ferrous Sulfate 325 MG TAB PO SCH (09:38)
[2023-01-07] MEDS: Ascorbic Acid 500 mg Chewable Tablet PO SCH (09:38)
[2023-01-07] MEDS: Acetaminophen 500 MG TAB PO SCH ×3 (09:39→21:02)
[2023-01-07] MEDS: Melatonin 3 MG TAB PO SCH (21:02)
[2023-01-07] MEDS: traMADol HCl 50 MG TAB PO PRN (21:03)
[2023-01-08] MEDS: Ketorolac Tromethamine 30 MG/ML VIAL IVP SCH ×5 (02:50→23:37)
[2023-01-08] MEDS: Piperacillin/Tazobactam 3.375 GM in Sodium Chloride 0.9% 100 ML IVPB SCH ×2 (02:50→09:06)
[2023-01-08] MEDS: Acetaminophen 500 MG TAB PO SCH ×4 (05:09→21:52)
[2023-01-08] MEDS: traMADol HCl 50 MG TAB PO PRN ×2 (05:55→21:52)
[2023-01-08 08:06] LABS: #Eosinphils 0.2 thou/uL (0.0-0.7); #Monocytes 0.8 thou/uL (0.11-0.59); #Neutrophils 8.7 thou/uL (1.40-6.50); %Basophils 0.3 % (0.0-1.0); %Eosinophils 1.7 % (0.0-10.0); %Lymphocytes 15.5 % (21.0-51.0); %Monocytes 6.4 % (0.0-10.0); %Neutrophils 74.4 % (42.0-75.0); Hematocrit 26.6 % (36.0-47.0); Hemoglobin 8.3 g/dL (12.0-16.0); Mean Corpuscular HGB CONC 31.2 g/dL (32.0-36.0); Mean Corpuscular Hemoglobin 29.7 pg (27.0-31.0); Mean Corpuscular Volume 95.3 fl (78.0-98.0); Mean Platelet Volume 9.5 fL (7.4-10.4); Platelet Count 486 10x3/uL (130-400); RBC Distribution Width 13.7 % (11.5-14.5); Red Blood Cell (RBC) Count 2.79 mill/uL (4.20-5.40); White Blood Cell (WBC) Count 11.7 10x3/uL (4.8-10.8)
[2023-01-08 08:31] LABS: ALT (SGPT) 37 U/L (8-55); AST (SGOT) 31 U/L (5-34); Albumin 2.8 g/dL (3.5-5.0); Alkaline Phosphatase 79 U/L (40-110); Anion Gap 13 mmol/L (10-20); BUN (Urea Nitrogen) 9 mg/dL (7.0-18.7); Bilirubin, Total 0.2 mg/dL (0.2-1.2); Calc. Creatinine Clearance 137 mL/min (70-130); Calcium 8.7 mg/dL (7.8-10.44); Carbon Dioxide 22 mmol/L (22-29); Chloride 109 mmol/L (98-107); Estimated GFR 121; Globulin 3.4 g/dL (2.4-3.5); Glucose 96 mg/dL (70-105); Magnesium 1.7 mg/dL (1.6-2.6); Potassium 3.5 mmol/L (3.5-5.1); Protein, Total 6.2 g/dL (6.0-8.3); Sodium 140 mmol/L (136-145)
[2023-01-08] MEDS: Ferrous Sulfate 325 MG TAB PO SCH (09:05)
[2023-01-08] MEDS: Ascorbic Acid 500 mg Chewable Tablet PO SCH (09:06)
[2023-01-08] MEDS ORDERED: Magnesium 2 GM/50 ML(in water) 2 GM in Premix Bag 1 BAG IVPB SCH (11:00)
[2023-01-08] MEDS: Potassium Chloride 20 MEQ in Premix Bag 1 BAG IVPB SCH ×2 (11:02→15:37)
[2023-01-08] MEDS ORDERED: cefTRIAXone\\ROCEPHIN 2 GM in Sodium Chloride 0.9% 100 ML IVPB SCH (14:00)
[2023-01-08] MEDS: metroNIDAZOLE 500 MG TAB PO SCH ×2 (15:36→21:52)
[2023-01-08] MEDS ORDERED: Ciprofloxacin 500 MG TAB PO SCH (20:00)
[2023-01-08] MEDS: Melatonin 3 MG TAB PO SCH (21:52)
[2023-01-09] MEDS: Acetaminophen 500 MG TAB PO SCH ×2 (04:51→09:28)
[2023-01-09] MEDS: Ketorolac Tromethamine 30 MG/ML VIAL IVP SCH ×2 (04:56→12:49)
[2023-01-09 07:37] LABS: #Eosinphils 0.3 thou/uL (0.0-0.7); #Monocytes 0.6 thou/uL (0.11-0.59); #Neutrophils 7.3 thou/uL (1.40-6.50); %Basophils 0.3 % (0.0-1.0); %Eosinophils 2.7 % (0.0-10.0); %Lymphocytes 16.1 % (21.0-51.0); %Monocytes 5.5 % (0.0-10.0); %Neutrophils 73.8 % (42.0-75.0); Hematocrit 29.2 % (36.0-47.0); Hemoglobin 9.3 g/dL (12.0-16.0); Mean Corpuscular HGB CONC 31.8 g/dL (32.0-36.0); Mean Corpuscular Hemoglobin 30.3 pg (27.0-31.0); Mean Corpuscular Volume 95.1 fl (78.0-98.0); Mean Platelet Volume 9.5 fL (7.4-10.4); Platelet Count 477 10x3/uL (130-400); Red Blood Cell (RBC) Count 3.07 mill/uL (4.20-5.40)
[2023-01-09 08:03] LABS: ALT (SGPT) 42 U/L (8-55); AST (SGOT) 29 U/L (5-34); Alkaline Phosphatase 82 U/L (40-110); Anion Gap 16 mmol/L (10-20); BUN (Urea Nitrogen) 10 mg/dL (7.0-18.7); Bilirubin, Total 0.2 mg/dL (0.2-1.2); Calc. Creatinine Clearance 128 mL/min (70-130); Calcium 8.5 mg/dL (7.8-10.44); Carbon Dioxide 20 mmol/L (22-29); Chloride 106 mmol/L (98-107); Estimated GFR 111; Globulin 3.3 g/dL (2.4-3.5); Glucose 90 mg/dL (70-105); Potassium 3.6 mmol/L (3.5-5.1); Protein, Total 6.3 g/dL (6.0-8.3); Sodium 138 mmol/L (136-145)
[2023-01-09] MEDS: traMADol HCl 50 MG TAB PO PRN (09:27)
[2023-01-09] MEDS: metroNIDAZOLE 500 MG TAB PO SCH ×2 (09:28→14:26)
[2023-01-09] MEDS: Ferrous Sulfate 325 MG TAB PO SCH (09:28)
[2023-01-09] MEDS: Ascorbic Acid 500 mg Chewable Tablet PO SCH (09:29)
[2023-01-09] MEDS ORDERED: Cefdinir 300 MG CAP PO SCH (14:00)
[2023-01-09 14:54] VITALS: BP 110/64; TEMP 98
== END 2023-01-09 15:50 | disposition home or self-care (01) | DRG 862 ==
LOC: SJJU 01:25
PROVIDERS: ADMIT Surgery; ATTEND Surgery
PROC: 0D9W3ZZ Drainage of Peritoneum, Percutaneous Approach (ICD-10-PCS; principal; 2023-01-05)
DX: T81.43XA Infection following a procedure, organ and space surgical site, initial encounter (principal); K55.059 Acute (reversible) ischemia of intestine, part and extent unspecified; K65.1 Peritoneal abscess; S32.029D Unspecified fracture of second lumbar vertebra, subsequent encounter for fracture with routine healing; V89.2XXD Person injured in unspecified motor-vehicle accident, traffic, subsequent encounter; Z88.5 Allergy status to narcotic agent; Z91.013 Allergy to seafood; Z98.890 Other specified postprocedural states; B96.1 Klebsiella pneumoniae [K. pneumoniae] as the cause of diseases classified elsewhere; B96.20 Unspecified Escherichia coli [E. coli] as the cause of diseases classified elsewhere; B95.4 Other streptococcus as the cause of diseases classified elsewhere; Y83.8 Other surgical procedures as the cause of abnormal reaction of the patient, or of later complication, without mention of misadventure at the time of the procedure; Z90.49 Acquired absence of other specified parts of digestive tract
CPT/HCPCS: 36415; 49020; 77002; 80048; 80053; 83735; 84100; 85025; 85610; 85652; 85730; 86140; 87070; 87077; 87186; 87205; 97139; C1729; J0696; J1650; J1885; J2250; J2270; J2272; J2405; J2543; J3010; J3475; J3480; J3490; J7050; S0028

== ENCOUNTER 2023-02-06 07:54 | Outpatient (CLI) | payer BC ==
[2023-02-06] MEDS ORDERED: Iopamidol 370 76% 100 ML VIAL ONE (10:27)
== END 2023-02-06 07:55 | disposition home or self-care (01) ==
LOC: CT 07:54
PROVIDERS: ATTEND Student in an Organized Health Care Education/Training Program
DX: K65.1 Peritoneal abscess (principal); Z96.89 Presence of other specified functional implants; K55.059 Acute (reversible) ischemia of intestine, part and extent unspecified; M48.56XD Collapsed vertebra, not elsewhere classified, lumbar region, subsequent encounter for fracture with routine healing; K76.0 Fatty (change of) liver, not elsewhere classified
CPT/HCPCS: 74177; 82565; Q9967

== ENCOUNTER 2025-02-05 08:22 | Outpatient (CLI) | payer OTHER | END 2025-02-05 08:23 | disposition home or self-care (01) | LOC: SCSMRI 08:22 | PROVIDERS: ATTEND Obstetrics & Gynecology Gynecologic Oncology | DX: R19.09 Other intra-abdominal and pelvic swelling, mass and lump (principal) | CPT/HCPCS: 72195 ==